=== PATIENT | female | born 2000 | race Caucasian/White ===

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

== ENCOUNTER 2019-05-22 16:43 | Emergency (ER) | payer BC ==
[~2019-05-22] VITALS: Ht 152.4 cm; Wt 63.6 kg
[~2019-05-22 16:43] MED LIST: CONCERTA36 MG PO; EFFEXOR-XR150 MG PO; FLEXERIL5 MG PO; MACROBID 1100 MG/CAP PO; PYRIDIUM200 M1 PO; SEROQUEL50 MG PO
[2019-05-22] MEDS ORDERED: ADDERALL XR30 MG PO (16:48)
[2019-05-22] MEDS ORDERED: ATARAX 25MG25 MG/TAB PO (16:48)
[2019-05-22 17:41] LABS: COLLECTION METHOD CLEAN CATCH
[2019-05-22 17:55] LABS: GRAN # 2.6 (1.4-6.5); GRAN % 68.6 % (42.2-75.2); HEMATOCRIT 42.3 % (35.0-45.0); HEMOGLOBIN 14.2 g/dl (12.0-15.0); LYMPH # 0.7 (1.2-3.4); LYMPH % 17.3 % (20.0-51.0); MEAN CELL VOLUME 88 fl (80.0-95.0); MEAN CORPUSCULAR HEMOGLOBIN 29 pg (26.0-32.0); MEAN CORPUSCULAR HGB CONC 34 g/dl (33.0-37.0); MONO # 0.5 (0.1-0.6); MONO % 13.6 % (1.7-9.3); PLATELET COUNT 206 K/mm3 (130-400); RED BLOOD COUNT 4.83 M/mm3 (4.10-5.30); REDCELL DISTRIBUTION WIDTH-CV 12.1 % (11.5-14.5)
[2019-05-22 17:57] LABS: ALBUMIN 5.4 gm/dL (3.5-5.0); BILIRUBIN,TOTAL 0.6 mg/dL (0.0-1.0); C-REACTIVE PROTEIN 5.4 mg/dL (0.0-0.9); CREATININE, serum 0.87 (0.52-1.25); POTASSIUM 3.5 mmol/L (3.4-5.0); TOTAL PROTEIN 9.4 gm/dL (6.4-8.2)
[2019-05-22 18:01] LABS: STREP SCREEN NEGATIVE
[2019-05-22 18:07] LABS: MUCOUS Present /lpf; PH 6 (5-8); URINE APPEARANCE Cloudy; URINE BACTERIA Many /hpf; URINE BILIRUBIN Negative (NEGATIVE); URINE BLOOD Negative (NEGATIVE); URINE COLOR Amber; URINE GLUCOSE Negative (NEGATIVE); URINE KETONE Trace (NEGATIVE); URINE LEUKOCYTE ESTERASE Trace (NEGATIVE); URINE NITRATE Negative (NEGATIVE); URINE PROTEIN(semi-quant) 2+ (NEGATIVE); URINE UROBILINOGEN Negative (NEGATIVE)
[2019-05-22 19:35] LABS: GLUCOSE,CSF 56 mg/dL (40-70); TOTAL PROTEIN,CSF 22 mg/dL (15-45)
[2019-05-22 20:59] LABS: CSF APPEARANCE CLEAR; CSF COLOR COLORLESS; CSF MONONUCLEAR 100 % (70-100); CSF POLYMORPHONUCLEAR 0 % (0-6); CSF RBC 0 /mm3 (0-0)
[2019-05-22 21:08] LABS: CSF APPEARANCE CLEAR; CSF COLOR COLORLESS; CSF POLYMORPHONUCLEAR 0 % (0-6); CSF RBC 0 /mm3 (0-0)
[2019-05-22 21:09] LABS: CSF MONONUCLEAR 100 % (70-100)
[2019-05-22] MEDS ORDERED: FLEXERIL 1010 MG/TAB PO (21:35)
[2019-05-22] MEDS ORDERED: OMNICEF 300MG300 MG PO (21:35)
[2019-05-22 21:40] VITALS: BP 126/82; PULSE 91; TEMP 98.2
== END 2019-05-22 21:45 | disposition home or self-care (01) ==
LOC: COL.ER 16:43
PROVIDERS: Emergency Medicine
DX: G43.909 Migraine, unspecified, not intractable, without status migrainosus (principal); N39.0 Urinary tract infection, site not specified; M54.2 Cervicalgia; F90.9 Attention-deficit hyperactivity disorder, unspecified type; F32.9 Major depressive disorder, single episode, unspecified
CPT/HCPCS: J0696; J2405; J3010; J7030

== ENCOUNTER → 2020-01-13 | Outpatient (CLI) | payer SELFPAY ==
[~2020-01-13] MED LIST changes: +ADDERALL XR30 MG PO; +ATARAX 25MG25 MG/TAB PO; +CLEOCIN HCL300 MG PO; +FLEXERIL 1010 MG/TAB PO; +OMNICEF 300MG300 MG PO
== END ==
LOC: LDRO 15:53
DX: Z01.89 Encounter for other specified special examinations (principal)

== ENCOUNTER → 2020-10-01 | Outpatient (CLI) | payer BC ==
[~2020-10-01] MED LIST changes: +BENTYL 10MG10 MG/CAP PO; +INDERAL80 MG PO; +LAMICTAL ODT100 MG TL
== END ==
LOC: COL.RAD 09:18
DX: R93.2 Abnormal findings on diagnostic imaging of liver and biliary tract (principal); R10.11 Right upper quadrant pain; R11.2 Nausea with vomiting, unspecified

== ENCOUNTER 2020-11-03 11:15 | Day surgery (SDC) | payer BC ==
[~2020-11-03] VITALS: Ht 152.4 cm; Wt 74.0 kg
[~2020-11-03 11:15] MED LIST changes: -BENTYL 10MG10 MG/CAP PO; -INDERAL80 MG PO; -LAMICTAL ODT100 MG TL
[2020-11-03] MEDS ORDERED: INDERAL80 MG PO (11:33)
[2020-11-03] MEDS ORDERED: LAMICTAL ODT100 MG TL (11:35)
[2020-11-03 12:15] VITALS: BP 121/83; PULSE 75; TEMP 98.3
[2020-11-03 13:07] VITALS: BP 105/79; PULSE 82
--- NOTE | 2020-11-03 13:07 | NUR ---
Pt to [facility] via cart from [facility]. Pt drowsy. Pt denies pain or nausea. Pt ambulates to recliner. Warm blankets given. Crackers, jello, and sprite provided per pt request. Will continue to monitor. Call light within reach.
[2020-11-03 13:22] VITALS: BP 108/80; PULSE 77
--- NOTE | 2020-11-03 13:22 | NUR ---
Pt continues to rest. Tolerating po food and fluids without difficulties. Pt denies needs. Call light within reach.
[2020-11-03 13:37] VITALS: BP 118/73; PULSE 73
--- NOTE | 2020-11-03 13:37 | NUR ---
Pt continues to rest. Muffin given per pt request. Will continue to monitor. Call light within reach.
[2020-11-03 13:52] VITALS: BP 109/83; PULSE 84
--- NOTE | 2020-11-03 13:52 | NUR ---
called to clearify pt's status of being on a PPI. Pt did not report a PPI to nursing staff on admission, and the discharge instructions are to increase the PPI to 2x a day. will be sending in a script to pt's pharmacy for Protonix. Pt ok with this. Discharge instructions reviewed. Pt voices understanding. IV site discontinued with all parts intact. Pt up to dress. Call light within reach.
--- NOTE | 2020-11-03 14:15 | NUR ---
Pt escorted to private car via wheel chair. Pt accompanied home by her friend.
== END 2020-11-03 14:15 | disposition home or self-care (01) ==
LOC: SDCO 11:15
DX: K21.00 Gastro-esophageal reflux disease with esophagitis, without bleeding (principal); K29.70 Gastritis, unspecified, without bleeding; F41.9 Anxiety disorder, unspecified; F32.9 Major depressive disorder, single episode, unspecified; F98.8 Other specified behavioral and emotional disorders with onset usually occurring in childhood and adolescence; F43.10 Post-traumatic stress disorder, unspecified; K74.60 Unspecified cirrhosis of liver
CPT/HCPCS: J2704; J7030

== ENCOUNTER 2020-11-13 01:05 | Emergency (ER) | payer BC ==
[~2020-11-13] VITALS: Ht 154.9 cm; Wt 68.2 kg
[~2020-11-13 01:05] MED LIST changes: +INDERAL80 MG PO; +LAMICTAL ODT100 MG TL
[2020-11-13 01:13] VITALS: TEMP 99.1
[2020-11-13 01:36] LABS: BASO % 0.1 % (0.0-2.0); GRAN # 6.5 (1.4-6.5); GRAN % 77.4 % (42.2-75.2); HEMATOCRIT 43.3 % (37.0-47.0); HEMOGLOBIN 14.6 g/dl (12.5-16.0); LYMPH # 1.5 (1.2-3.4); LYMPH % 17.2 % (20.0-51.0); MEAN CELL VOLUME 86 fl (80.0-100.0); MEAN CORPUSCULAR HEMOGLOBIN 29 pg (27.0-31.0); MEAN CORPUSCULAR HGB CONC 34 g/dl (33.0-37.0); MEAN PLATELET VOLUME 8.9 fl (7.4-10.4); MONO # 0.4 (0.1-0.6); MONO % 4.9 % (1.7-9.3); PLATELET COUNT 281 K/mm3 (130-400); RED BLOOD COUNT 5.06 M/mm3 (4.10-5.30); REDCELL DISTRIBUTION WIDTH-CV 12.8 % (11.5-14.5)
[2020-11-13 01:48] LABS: ALBUMIN 4.9 gm/dL (3.5-5.0); BILIRUBIN,TOTAL 0.7 mg/dL (0.0-1.0); CALCIUM 9.7 mg/dL (8.4-10.2); CREATININE, serum 0.77 (0.52-1.25); POTASSIUM 4.3 mmol/L (3.4-5.0); TOTAL PROTEIN 8.3 gm/dL (6.4-8.2)
[2020-11-13 01:49] LABS: COLLECTION METHOD CLEAN CATCH
[2020-11-13 01:55] LABS: MUCOUS Present /lpf; PH 6 (5-8); URINE APPEARANCE Hazy; URINE BACTERIA Rare /hpf; URINE BILIRUBIN Negative (NEGATIVE); URINE BLOOD Negative (NEGATIVE); URINE COLOR Yellow; URINE GLUCOSE Negative (NEGATIVE); URINE KETONE Trace (NEGATIVE); URINE LEUKOCYTE ESTERASE Negative (NEGATIVE); URINE NITRATE Negative (NEGATIVE); URINE PROTEIN(semi-quant) Negative (NEGATIVE); URINE RBC 0-2 /hpf; URINE UROBILINOGEN Negative (NEGATIVE)
[2020-11-13] MEDS ORDERED: BENTYL 10MG10 MG/CAP PO (03:38)
[2020-11-13 03:56] VITALS: BP 117/82; PULSE 90
== END 2020-11-13 03:56 | disposition home or self-care (01) ==
LOC: COL.ER 01:05
PROVIDERS: Emergency Medicine
DX: R10.84 Generalized abdominal pain (principal); R00.0 Tachycardia, unspecified; Z88.1 Allergy status to other antibiotic agents; Z32.02 Encounter for pregnancy test, result negative
CPT/HCPCS: J2405; J3010; J7120; Q9967

== ENCOUNTER → 2020-11-18 | Outpatient (CLI) | payer BC ==
[~2020-11-18] MED LIST changes: +BENTYL 10MG10 MG/CAP PO
== END ==
LOC: COL.RAD 11:23
DX: R11.2 Nausea with vomiting, unspecified (principal)
CPT/HCPCS: A9537

== ENCOUNTER 2021-07-21 19:49 | Emergency (ER) | payer BC ==
[~2021-07-21] VITALS: Ht 154.9 cm; Wt 72.7 kg
[2021-07-21 19:52] VITALS: TEMP 100.2
[2021-07-21 21:32] LABS: BASO % 0.3 % (0.0-2.0); EOS % 0.3 % (0.0-4.0); GRAN # 2.7 K/mm3 (1.4-6.5); GRAN % 70.7 % (42.2-75.2); HEMATOCRIT 41.7 % (37.0-47.0); HEMOGLOBIN 14.6 g/dl (12.5-16.0); LYMPH # 0.8 K/mm3 (1.2-3.4); LYMPH % 21.1 % (20.0-51.0); MEAN CELL VOLUME 84 fl (80.0-100.0); MEAN CORPUSCULAR HEMOGLOBIN 30 pg (27-31); MEAN CORPUSCULAR HGB CONC 35 g/dl (33.0-37.0); MEAN PLATELET VOLUME 8.6 fl (7.4-10.4); MONO # 0.3 K/mm3 (0.1-0.6); MONO % 7.1 % (1.7-9.3); PLATELET COUNT 239 K/mm3 (130-400); RED BLOOD COUNT 4.94 M/mm3 (4.10-5.30); REDCELL DISTRIBUTION WIDTH-CV 12.7 % (11.5-14.5)
[2021-07-21 21:53] LABS: ALBUMIN 4.3 gm/dL (3.5-5.0); BILIRUBIN,TOTAL 0.8 mg/dL (0.2-1.2); CALCIUM 9.7 mg/dL (8.4-10.2); CREATININE, serum 0.86 mg/dL (0.57-1.11); POTASSIUM 3.9 mmol/L (3.5-4.5); TOTAL PROTEIN 7.8 gm/dL (6.2-8.1)
[2021-07-21 22:51] VITALS: BP 116/82; PULSE 99
== END 2021-07-21 22:51 | disposition home or self-care (01) ==
LOC: COL.ER 19:49
PROVIDERS: Student in an Organized Health Care Education/Training Program
DX: B34.9 Viral infection, unspecified (principal); Z20.822 Contact with and (suspected) exposure to COVID-19
CPT/HCPCS: J7030

== ENCOUNTER → 2021-10-18 | Outpatient (CLI) | payer BC | LOC: COL.RAD 06:58 | DX: K29.60 Other gastritis without bleeding (principal); K21.9 Gastro-esophageal reflux disease without esophagitis | CPT/HCPCS: A9541 ==